=== PATIENT | female | born 1965 | race Caucasian/White ===

== ENCOUNTER → 2016-06-21 | Outpatient (CLI) | payer BC ==
[~2016-06-21] MED LIST: B-12500 MCG PO; BIOTIN5000 MCG PO; BIRTH CONTROL PILL; CENTRUM MULTIG80 MCG PO; CLARITIN10 M3 PO; DEXILANT60 MG PO; EC-NAPROSYN500 MG PO; ELIQUIS5 MG PO; HCTZ PO; HYDROCHLOROTHIA25 MG PO; LEXAPRO20 MG PO; LO-DOSE ASPIRIN81 M1 PO; LORTAB 7.5-5001 TAB PO; MELATONIN5 M1 PO; METOPROLOL SUCC25 MG PO; MICROGESTIN FE1 EACH PO; PHENERGAN PO; PROTONIX PO; TOPROL XL 50 MG50 MG PO; VITAMIN D1000 UNI2 PO; VOLTAREN100 GM TP; ZESTRIL5 MG PO; ZOFRAN PO
--- NOTE | ~2016-06-21 | MY11 ---
[facility] RADIOLOGY TEXT RESULTS PATIENT: NOEMY TEAGUE LOCATION: [facility] : [birth year] UNIT #: [id number] AGE: [address]: Brandie Shea MD SEX: F ORDER DR: [id number] [facility] [address] [place], [place] [address] [id number] O MR#: [id number] Acc #: [id number] NAME: NOEMY TEAGUE. : 1965 SEX: F STUDY DATE/TIME: 06/21/2016 8:31 UNIT: [facility] ROOM: STUDY DESCRIPTION: MY Mammogram Screening Dig Jose Juan Attending Physician: Brandie Shea M.D. Referring Physician: Brandie Shea M.D. Ordering Physician: Brandie Shea M.D. Primary Care Physician: Brandie Shea M.D. MEDICAL IMAGING REPORT This report is preliminary unless electronic signature is present EXAM Digital screening mammogram 06/21/2016. [facility] HISTORY 51-year-old woman no risk elevation. Annual screening. COMPARISON: Mammograms 10/04/2007, 09/18/2010, with followup left breast 10/02/2010, screening 11/14/2014 with followup right breast 12/13/2014. Digital imaging of each breast was completed utilizing screening protocol. Review includes FDA-approved CAD device. Breast parenchyma remains heterogeneous with a mild subareolar duct prominence and scattered parenchymal nodularity in each breast. Mild parenchymal dominance projects upper outer quadrant right breast. However, this is stable. I see no interval occurring breast mass. There are no suspicious microcalcifications and no architectural deformity. IMPRESSION Stable benign mammogram. Annual screening recommended. Patients over the age of 40 are entered into a reminder system with target due date for the next mammogram. A result letter will also be sent to the patient. BIRADS: 2 - benign findings Dictated by... Angel Ny M.D. [facility] RADIOLOGY TEXT RESULTS PATIENT: NOEMY TEAGUE LOCATION: [facility] #: [id number] : [birth year] UNIT #: [id number] AGE: [address]: Brandie Shea MD SEX: F ORDER DR: THIS IS AN ELECTRONICALLY VERIFIED REPORT Angel Ny M.D. at 06/21/2016 11:01 AM Alexander TD: 06/21/2016 10:20 JOB #: [id number] MEDICAL IMAGING REPORT Page 1 of 1 COPY
== END | disposition home or self-care (01) ==
LOC: CWCC 07:53
DX: Z12.31 Encounter for screening mammogram for malignant neoplasm of breast (principal)
CPT/HCPCS: G0202